=== PATIENT | female | born 1995 | race African-American/Black ===

== ENCOUNTER 2016-07-19 05:57 | Observation (INO) ==
[2016-07-15 12:27] LABS: Basophils % 0.2 % (0.0-0.8); Eosinophils % 0.7 % (0.00-10.9); Hematocrit 31.6 VOL% (35.7-47.0); Hemoglobin 11.1 GM/DL (12.0-16.0); Immature Granulocytes Absolute 0.06 #; Lymphocytes # 1.3 10*3/uL (1.4-4.0); Lymphocytes % 22.4 % (21.3-54.2); Mean Corpuscular HGB Conc 35.1 GM/DL (32-36); Mean Corpuscular Hemoglobin 29 PG (27-34); Mean Corpuscular Volume 81.2 FL (87-102); Mean Platelet Volume 9.7 FL (9.6-12.0); Monocytes # 0.5 10*3/uL (0.11-0.8); Monocytes % 8.7 % (1.7-12.7); Neutrophils # 3.9 10*3/uL (1.4-7.4); Platelet Count 236 T/CUMM (130-400); Red Blood Count 3.89 MC/CUMM (3.8-5.5); Red Cell Distribution Width 13.2 % (9.3-17.3); White Blood Count 5.8 T/CUMM (4-12)
[2016-07-15 12:34] LABS: Apearance,Urine Slightly Hazy (Clear); Bacteria,Urine Many /HPF (Few); Bilirubin,Urine Negative (Negative); Blood, Urine Negative (Negative); Glucose,Urine (UA) 50 mg/dL (Negative); Ketones,Urine Negative (Negative); Mucus,Urine Occasional /LPF (Occasional); Nitrite,Urine Positive (Negative); Protein,Urine Negative; RBC,Urine 1 /HPF (0-4); Squamous Epithelial Cell,Urine Occasional /HPF (0-10); Urine Color Yellow (Yellow); Urine Specific Gravity 1.014 (1.001-1.035); WBC,Urine 4 /HPF (0-6)
[2016-07-15 12:52] LABS: Albumin 3.5 G/DL (3.4-5.0); Bilirubin,Total 0.5 MG/DL (0.2-1.0); Calcium 8.8 MG/DL (8.5-10.1); Osmolality,Calculated 272.5 MOS/KG (273-304); Potassium 3.8 MMOL/L (3.5-5.1)
[2016-07-15 13:41] LABS: HIV Antigen/Antibody Result Nonreactive (Nonreactive)
[2016-07-19] MEDS ORDERED: LACTATED RINGERS 1,000 ML IV SCH (08:30)
[2016-07-19] MEDS ORDERED: [UNRECOGNIZED DRUG - OTHER] VAG ONE (09:22)
--- NOTE | 2016-07-19 09:32 | History and Physical Update ---
History and Physical Update - History and Physical H&P was reviewed, the patient examined and there: are no changes in the patients condition since last H&P was completed.
[2016-07-19] MEDS ORDERED: PROPOFOL 200 MG/20 ML VIAL IV ONE (09:36)
--- NOTE | 2016-07-19 10:12 | Anesthesia Post-Op ---
Anesthesia Post OP - Post Ansesthetic Evaluation Patient seen in post op: Yes Resp: within normal limits CV: within normal limits Mental: within normal limits Temp: within normal limits Zogy-[id number]-Yygoqlcdg: within normal limits Nausea and Vomiting: within normal limits Pain: within normal limits
[2016-07-19] MEDS ORDERED: fentaNYL 100 MCG/2 ML VIAL ONE (10:14)
[2016-07-19] MEDS ORDERED: LANOLIN 50% CREAM 0.3 OZ TUBE TOP PRN (10:39)
[2016-07-19] MEDS ORDERED: ONDANSETRON 4 MG/2 ML VIAL IV PRN (10:39)
[2016-07-19] MEDS ORDERED: IBUPROFEN 800 MG TABLET PO PRN (10:39)
[2016-07-19] MEDS ORDERED: ACETAMINOPHEN 325 MG TABLET PO PRN (10:39)
[2016-07-19] MEDS ORDERED: oxyCODONE/ACETAMINOPHEN 5-325 MG TABLET PO PRN (10:39)
[2016-07-19] MEDS ORDERED: BISACODYL 10 MG SUPP RECTAL PRN (10:39)
--- NOTE | 2016-07-19 10:49 | Operative Note ---
Date of procedure: 07/19/16 Procedure: Preoperative diagnosis: [] Cervical cerclage Postoperative diagnosis: Same, incompetence or Anesthesia:[] Spinal Estimated blood loss: [] 50 cc Surgeon: Dr. Navas Findings: [] Negative Complications: None Procedure: Sanchez's cerclage Procedure Patient was taken to the operating suite administration of spinal anesthesia. She was placed supine position. Perineum was prepped and draped in usual manner for major perineal surgery. heart tones were obtained prior to the procedure. The weighted speculum space and posterior for vagina single- tooth tenaculum grasped the anterior and posterior lip of the cervix. A suture was placed starting at the 3 o'clock position again 12 9 at 6 o'clock position the suture was then cinched down in a pursestring manner. Same technique was performed a little further cephalad. Starting at the 12 o'clock position 9 6 and 3 o'clock position suture was then cinched down in a pursestring manner. Hemostasis was maintained she tolerated this well he was then taken to the recovery room in stable condition whereupon heart tones were obtained. [] Surgeon / Physician: Cee Navas Results - Labs CBC & BMP: 07/15/16 12:15 07/15/16 12:15 Discharge Plan - Discharge Medications No Action Multivitamin () [ Vitamin] 1 tablet PO DAILY - Follow Up or Referral - Forms/Instructions
[2016-07-19] MEDS: oxyCODONE/ACETAMINOPHEN 5-325 MG TABLET PO PRN ×3 (12:11→22:31)
[2016-07-19] MEDS: LACTATED RINGERS 1,000 ML IV SCH ×2 (12:13→21:05)
[2016-07-19] MEDS ORDERED: AMPICILLIN INJ 2,000 MG in SODIUM CHLORIDE 0.9% 100 ML IV SCH (17:00)
[2016-07-19] MEDS: diphenhydrAMINE CAP 25 MG CAPSULE PO PRN (18:54)
[2016-07-19] MEDS: CIPROFLOXACIN 500 MG TABLET PO SCH (21:06)
[2016-07-19] MEDS: DOCUSATE SODIUM 100 MG CAPSULE PO SCH (21:06)
[2016-07-20] MEDS: diphenhydrAMINE CAP 25 MG CAPSULE PO PRN (00:45)
[2016-07-20 06:15] LABS: Basophils % 0.2 % (0.0-0.8); Eosinophils # 0.1 10*3/uL (0.0-0.87); Eosinophils % 0.8 % (0.00-10.9); Hematocrit 27.8 VOL% (35.7-47.0); Hemoglobin 9.4 GM/DL (12.0-16.0); Immature Granulocytes % 0.3 %; Immature Granulocytes Absolute 0.02 #; Lymphocytes # 1.3 10*3/uL (1.4-4.0); Lymphocytes % 20.7 % (21.3-54.2); Mean Corpuscular HGB Conc 33.8 GM/DL (32-36); Mean Corpuscular Hemoglobin 28 PG (27-34); Mean Platelet Volume 10.2 FL (9.6-12.0); Monocytes # 0.6 10*3/uL (0.11-0.8); Monocytes % 9.3 % (1.7-12.7); Neutrophils # 4.4 10*3/uL (1.4-7.4); Neutrophils % 68.7 % (38.7-73.9); Platelet Count 188 T/CUMM (130-400); Red Blood Count 3.35 MC/CUMM (3.8-5.5); Red Cell Distribution Width 13.2 % (9.3-17.3); White Blood Count 6.4 T/CUMM (4-12)
[2016-07-20] MEDS: LACTATED RINGERS 1,000 ML IV SCH (06:32)
[2016-07-20] MEDS: DOCUSATE SODIUM 100 MG CAPSULE PO SCH (09:10)
[2016-07-20] MEDS: CIPROFLOXACIN 500 MG TABLET PO SCH (09:10)
[2016-07-20] MEDS: oxyCODONE/ACETAMINOPHEN 5-325 MG TABLET PO PRN (12:25)
[2016-07-20 15:45] VITALS: BP 94/51
--- NOTE | 2016-07-20 17:24 | Discharge Summary ---
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 Patient's surgery was uneventful on 19 July and presently she is without any complications. Her laboratory values demonstrated a cystitis which she did receive IV antibiotics and will be discharged with Macrobid twice daily for the next 7 days. She will also be discharged with analgesic and a limited number. heart tones were obtained prior to her discharge her postop instructions were thoroughly given. Specialty Discharge - Follow Up or Referrals Follow up with: Cee Navas MD [Physician] - Discharge Plan - Discharge Data Condition at Discharge: Stable Discharge Diet: advance to your usual diet Activity: increase activity as tolerated, no lifting, no prolonged standing Hygiene: may shower, may tub bathe Contact your physician if you experience:: fever over 101, Bleeding - Discharge Medications New Acetamin/Codeine 300-30 Tab [Tylenol/Codeine #3] 1 tablet PO Q6H #20 tablet Ciprofloxacin Tab [Cipro Tab] 500 mg PO Q12HR #14 tablet No Action Multivitamin () [ Vitamin] 1 tablet PO DAILY - Follow Up or Referral Follow Up: Cee Navas MD [Physician] - - Forms/Instructions Instructions: Cervical Cerclage (DC), Labor (DC) Exam - Constitutional Vitals: Period Temp Pulse Resp BP Sys/Carreon Pulse Ox Last 24 Hr 96.5 F-98.9 F 82-91 16-20 76-94/44-57 97-100 Discharge Results Labs on day of discharge: Labs from last 24 hours 07/20/16 04:17 WBC 6.4 RBC 3.35 L Hgb 9.4 L Hct 27.8 L MCV 83.0 L MCH 28 MCHC 33.8 RDW 13.2 Plt Count 188 MPV 10.2 Neut % (Auto) 68.7 Lymph % (Auto) 20.7 L [place] % (Auto) 9.3 Eos % (Auto) 0.8 Baso % (Auto) 0.2 Neut # (Auto) 4.4 Lymph # (Auto) 1.3 L [place] # (Auto) 0.6 Eos # (Auto) 0.1 Baso # (Auto) 0.0 Immature Gran % 0.3 Nucleated RBC % 0.0 Immature Gran # 0.02 Nucleated RBCs # 0.00 DS: Provider Date of admission: 07/19/16 10:40 Attending physician on admission: Cee Navas MD Consults: 07/19/16 10:40 Consult to Facility Specialist [CONS] Routine Consult Facility Specialist: Breast Feeding Discharging clinician: Cee Navas MD
== END 2016-07-20 17:38 | disposition home or self-care (01) ==
LOC: N.OR 05:57 → N.SDSINP 05:58 → INTOOBSV 10:40 → N.OB 11:00
PROVIDERS: ADMIT Obstetrics & Gynecology; ATTEND Obstetrics & Gynecology

== ENCOUNTER 2019-08-02 05:14 | Inpatient (IN) ==
[2019-08-02] MEDS ORDERED: LACTATED RINGERS 1,000 ML IV ONE (05:23)
[2019-08-02] MEDS ORDERED: ONDANSETRON 4 MG/2 ML VIAL IV PRN (05:23)
[2019-08-02] MEDS ORDERED: OXYTOCIN 20 UNIT in SODIUM CHLORIDE 0.9% 1,000 ML IV SCH (05:30)
[2019-08-02] MEDS ORDERED: LACTATED RINGERS 1,000 ML IV SCH (05:30)
[2019-08-02 06:01] LABS: Basophils % 0.3 % (0.0-0.8); Eosinophils # 0.1 10*3/uL (0.0-0.87); Eosinophils % 0.8 % (0.00-10.9); Hematocrit 31.1 VOL% (35.7-47.0); Hemoglobin 9.6 GM/DL (12.0-16.0); Immature Granulocytes % 0.5 %; Immature Granulocytes Absolute 0.04 #; Lymphocytes % 26.5 % (21.3-54.2); Mean Corpuscular HGB Conc 30.9 GM/DL (32-36); Monocytes % 14.4 % (1.7-12.7); Neutrophils % 57.5 % (38.7-73.9); Platelet Count 275 T/CUMM (130-400); Red Blood Count 4.04 MC/CUMM (3.8-5.5); White Blood Count 7.5 T/CUMM (4-12)
[2019-08-02] MEDS ORDERED: AMPICILLIN INJ 2,000 MG in SODIUM CHLORIDE 0.9% 100 ML IV ONE (06:07)
[2019-08-02 06:21] LABS: Alanine Aminotransferase < 9 U/L (13-56); Albumin 2.4 G/DL (3.4-5.0); Alkaline Phosphatase 143 U/L (45-117); Aspartate Amino Transferase 9 U/L (0-37); Blood Urea Nitrogen 4 MG/DL (7-18); Calcium 8.8 MG/DL (8.5-10.1); Estimated Glom Filtration Rate 161 ML/MIN; Glucose 81 MG/DL (74-106); Osmolality,Calculated 265.1 MOS/KG (273-304); Total Protein 7.2 G/DL (6.4-8.3)
[2019-08-02] MEDS ORDERED: OXYTOCIN/LR 20 UNIT/1,000 ML BAG IV ONE ×2 (06:34→16:55)
[2019-08-02] MEDS ORDERED: CITRIC ACID/SODIUM CITRATE 30 ML UDCUP PO ONE (09:06)
[2019-08-02] MEDS ORDERED: FAMOTIDINE 20 MG/2 ML VIAL IV ONE (09:06)
[2019-08-02] MEDS ORDERED: hydrOXYzine HCL 25 MG/1 ML VIAL IM PRN (09:06)
[2019-08-02] MEDS ORDERED: diphenhydrAMINE 50 MG/1 ML VIAL IV PRN ×2 (09:06)
[2019-08-02] MEDS ORDERED: PROMETHAZINE 25 MG/1 ML VIAL IM ONE (09:06)
[2019-08-02] MEDS ORDERED: NALOXONE 0.4 MG/ML VIAL IV PRN (09:06)
[2019-08-02] MEDS ORDERED: ePHEDrine 50 MG/ML VIAL IV PRN (09:06)
[2019-08-02] MEDS ORDERED: fentaNYL 2 MCG/ROPIV 0.2% EPID 100 ML EPIDURAL SCH (09:30)
[2019-08-02] MEDS ORDERED: AMPICILLIN INJ 1,000 MG in SODIUM CHLORIDE 0.9% 100 ML IV SCH (10:00)
[2019-08-02 11:00] LABS: Apearance,Urine CLEAR (Clear); Bilirubin,Urine Negative (Negative); Blood, Urine Negative (Negative); Glucose,Urine (UA) Negative (Negative); Ketones,Urine Negative (Negative); Nitrite,Urine Negative (Negative); Protein,Urine Negative; RBC,Urine <1 /HPF (0-4); Squamous Epithelial Cell,Urine Occasional /HPF (0-10); Urine Color Yellow (Yellow); Urine Specific Gravity 1.005 (1.001-1.035); Urine Urobilinogen < 2.0 EU/DL (0.2-1.0); WBC,Urine <1 /HPF (0-6)
[2019-08-02] MEDS ORDERED: CARBOPROST TROMETHAMINE 250 MCG/ML AMP IM ONE (13:25)
[2019-08-02] MEDS ORDERED: TRANEXAMIC ACID 1,000 MG/10 ML VIAL ONE (13:25)
[2019-08-02] MEDS ORDERED: METHYLERGONOVINE 0.2 MG/1 ML AMP ONE (13:25)
[2019-08-02] MEDS ORDERED: miSOPROStoL 200 MCG TABLET ONE (13:25)
[2019-08-02] MEDS ORDERED: SODIUM CHLORIDE 0.9% 0 ML IV ONE (13:26)
[2019-08-02] MEDS ORDERED: oxyCODONE/ACETAMINOPHEN 5-325 MG TABLET PO PRN ×2 (16:55)
[2019-08-02] MEDS ORDERED: BISACODYL 10 MG SUPP RECTAL PRN (16:55)
[2019-08-02] MEDS ORDERED: MEASLES/MUMPS/RUBELLA VACCINE 0.5 ML VIAL SUBCUT ONE (16:55)
[2019-08-02] MEDS ORDERED: BENZOCAINE 20%/MENTHOL 0.5% SPRAY 56 GM CAN TOP PRN (16:55)
[2019-08-02] MEDS ORDERED: LANOLIN 50% CREAM 0.3 OZ TUBE TOP PRN (16:55)
[2019-08-02] MEDS ORDERED: RHO(D) IMMUNE GLOBULIN 300 MCG SYRINGE IM ONE (16:55)
[2019-08-02] MEDS ORDERED: DIPH/TET/ACEL PERT BOOSTER VACCINE 0.5 ML VIAL IM ONE (16:55)
[2019-08-02] MEDS ORDERED: ACETAMINOPHEN 325 MG TABLET PO PRN (16:55)
[2019-08-02] MEDS ORDERED: HYDROCORTISONE 2.5% RECTAL CREAM 30 GM TUBE TOP PRN (16:55)
[2019-08-02] MEDS ORDERED: WITCH HAZEL PADS 100/JAR TOP PRN (16:55)
[2019-08-02] MEDS ORDERED: ACETAMINOPHEN/CODEINE 300-30 MG TABLET PO PRN (17:49)
[2019-08-02] MEDS: IBUPROFEN 800 MG TABLET PO PRN ×2 (18:10→23:56)
[2019-08-02] MEDS: ACETAMINOPHEN/CODEINE 300-30 MG TABLET PO PRN ×2 (18:10→23:56)
[2019-08-02] MEDS ORDERED: OXYTOCIN 20 UNIT in SODIUM CHLORIDE 0.9% 1,000 ML IV ONE (19:00)
[2019-08-02] MEDS: DOCUSATE SODIUM 100 MG CAPSULE PO SCH (21:26)
[2019-08-03 03:18] LABS: Basophils % 0.2 % (0.0-0.8); Eosinophils % 0.4 % (0.00-10.9); Hematocrit 26.7 VOL% (35.7-47.0); Hemoglobin 8.2 GM/DL (12.0-16.0); Immature Granulocytes % 0.4 %; Immature Granulocytes Absolute 0.04 #; Mean Corpuscular HGB Conc 30.7 GM/DL (32-36); Mean Corpuscular Volume 77.4 FL (87-102); Mean Platelet Volume 10.6 FL (9.6-12.0); Monocytes % 11.8 % (1.7-12.7); Neutrophils % 67.2 % (38.7-73.9); Platelet Count 240 T/CUMM (130-400); Red Blood Count 3.45 MC/CUMM (3.8-5.5); Red Cell Distribution Width 15.1 % (9.3-17.3); White Blood Count 9.9 T/CUMM (4-12)
[2019-08-03] MEDS ORDERED: POTASSIUM CHLORIDE 20 MEQ TABLET PO ONE (09:00)
[2019-08-03] MEDS: DOCUSATE SODIUM 100 MG CAPSULE PO SCH ×2 (09:58→20:35)
[2019-08-03] MEDS: ACETAMINOPHEN/CODEINE 300-30 MG TABLET PO PRN ×2 (13:05→20:35)
[2019-08-04] MEDS ORDERED: FERROUS SULFATE 325 MG TABLET PO SCH (09:00)
[2019-08-04] MEDS: DOCUSATE SODIUM 100 MG CAPSULE PO SCH (09:07)
[2019-08-04 11:39] VITALS: BP 98/70
== END 2019-08-04 13:00 | disposition home or self-care (01) | DRG 560 ==
LOC: N.LD 05:14 → N.OB 17:17
PROVIDERS: ADMIT Obstetrics & Gynecology; ATTEND Obstetrics & Gynecology